=== PATIENT | female | born 1980 | race Caucasian/White ===

== ENCOUNTER 2022-10-05 15:22 | Emergency (ER) | payer SELFPAY ==
[~2022-10-05] VITALS: Ht 165.1 cm; Wt 56.8 kg
[~2022-10-05 15:22] MED LIST: ALBU6.7H14 INH
[2022-10-05 16:22] LABS: BASOPHILS # (AUTO) 0.1 X10'3 (0-0.2); BASOPHILS % (AUTO) 1.5 % (0-1); EOSINOPHILS % (AUTO) 0.2 % (0-6); HEMATOCRIT 35.6 % (35.0-45.0); HEMOGLOBIN 11.8 g/dl (12.0-16.0); MEAN CORPUSCULAR HEMOGLOBIN 32.6 PG (27.0-31.0); MEAN CORPUSCULAR HGB CONC 33.3 g/dL (33.0-36.5); MEAN CORPUSCULAR VOLUME 98.1 FL (78-98); MEAN PLATELET VOLUME 8.9 FL (7.4-10.4); MONOCYTES # (AUTO) 0.4 X10'3 (0-0.9); MONOCYTES % (AUTO) 6.8 % (2-12); NEUTROPHILS # (AUTO) 3.7 X10'3 (1.8-7.7); NEUTROPHILS % (AUTO) 59.5 % (42-75); PLATELET COUNT 340 X10'3 (140-440); RED BLOOD COUNT 3.63 X10'6 (4.20-5.60); RED CELL DISTRIBUTION WIDTH 17.5 % (11.5-14.5); WHITE BLOOD COUNT 6.2 X10'3 (4.5-11.0)
[2022-10-05 16:32] LABS: ALANINE AMINOTRANSFERASE 137 U/L (12-78); ALBUMIN 3.8 G/DL (3.4-5.0); ALKALINE PHOSPHATASE 192 IU/L (46-116); ANION GAP 14 (8-16); ASPARTATE AMINO TRANSFERASE 259 U/L (10-37); BILIRUBIN,TOTAL 0.5 MG/DL (0.1-1.0); BLOOD UREA NITROGEN 6 MG/DL (7-18); BUN/CREATININE RATIO 7.5 (10.0-20.0); CALCIUM 8.7 MG/DL (8.5-10.1); CHLORIDE 99 MMOL/L (99-107); GLUCOSE 101 MG/DL (70-104); POTASSIUM 3.2 MMOL/L (3.5-5.1); SODIUM 138 MMOL/L (135-145); TOTAL PROTEIN 7.6 G/DL (6.4-8.2); eGFR 78 ML/MIN
[2022-10-05 18:36] LABS: CLARITY,URINE CLOUDY (Clear); COLOR,URINE YELLOW (Yellow); GLUCOSE, URINE NEGATIVE (Neg); KETONES,URINE NEGATIVE (Neg); LEUKOCYTE ESTERASE ,URINE TRACE (Neg); NITRITES, URINE POSITIVE (Neg); OCCULT BLOOD,URINE NEGATIVE (Neg); PROTEIN,URINE NEGATIVE (Neg); UROBILINOGEN,URINE 0.2 E.U/dL (0.2-1.0)
[2022-10-05 18:42] LABS: UA COLLECTION TYPE CLN CATCH MIDSTREAM
[2022-10-05 18:44] LABS: BACTERIA,URINE 4+ /HPF (Neg); RBC,URINE 0-2 /HPF (0-2); SQUAMOUS EPITHELIAL CELL,UR MODERATE /LPF (FEW)
[2022-10-05 18:45] LABS: MUCUS STRANDS FEW /LPF (Neg); TRANSITIONAL EPI CELLS,URINE FEW /HPF
[2022-10-05 18:48] LABS: URINE AMPHETAMINE SCREEN NEGATIVE (Neg); URINE BARBITUATE SCREEN NEGATIVE (Neg); URINE BENZODIAZEPINES SCREEN NEGATIVE (Neg); URINE CANNABINOID SCREEN POSITIVE (Neg); URINE COCAINE SCREEN POSITIVE (Neg); URINE METHADONE SCREEN NEGATIVE (Neg); URINE OPIATE SCREEN NEGATIVE (Neg); URINE PHENCYCLIDINE SCREEN NEGATIVE (Neg)
[2022-10-05] MEDS ORDERED: CefTRIAXone/D5W-Rocephin 1gm 50 ML IV ONE (19:20)
[2022-10-05] MEDS ORDERED: POTASSIUM BICARB 20meq eff tab 20 MEQ TABLET.EFF PO ONE (19:20)
[2022-10-05 20:25] VITALS: BP 139/95
[2022-10-05] MEDS ORDERED: NITR100C6 PO (20:25)
[2022-10-05] MEDS ORDERED: CHLO25CA10 PO (20:25)
[2022-10-05] MEDS ORDERED: NALT50TA PO (20:25)
[2022-10-05] MEDS ORDERED: ondansetron 4mg rapidly disintigrating tab PO ONE (20:45)
[2022-10-05] MEDS ORDERED: chlordiazePOXIDE 25mg capsule PO ONE (20:45)
--- NOTE | 2022-10-07 11:32 | NUR ---
Received order for consult. Patient was discharged. I called patient to see if she was interested in resources for treatment. Patient stated that she does not use drugs. She believes that she tested positive for drugs because she picked up a baggy outside of her work that had white substance in it. I told patient that I would document that in her chart and for her to keep my number if she has any questions.
== END 2022-10-05 20:59 | disposition home or self-care (01) ==
LOC: ER 15:23
DX: T40.411A Poisoning by fentanyl or fentanyl analogs, accidental (unintentional), initial encounter (principal); F10.129 Alcohol abuse with intoxication, unspecified; N39.0 Urinary tract infection, site not specified; F41.9 Anxiety disorder, unspecified; Y92.89 Other specified places as the place of occurrence of the external cause
CPT/HCPCS: 36415; 80053; 80305; 80320; 81001; 85025; 87077; 87088; 87186; 93005; 96365; 99284; J0696